=== PATIENT | male | born 1975 | race Caucasian/White ===

== ENCOUNTER 2018-12-24 12:30 | Emergency (ER) | payer OTHER ==
[2018-12-24 12:54] LABS: Urine Blood 3+ (NEG); Urine Glucose NEGATIVE (NEG); Urine Protein 2+ (NEG); Urine Specific Gravity >1.030 (1.005-1.030); Urine pH 5.5 (5.0-7.0)
[2018-12-24] MEDS ORDERED: NA CHLORIDE 0.9% 1,000 ML ONE (13:07)
[2018-12-24] MEDS ORDERED: ONDANSETRON 4 MG/2 ML VIAL ONE (13:07)
[2018-12-24 13:09] LABS: Absolute Lymphocytes (CBC) 1.8 K/uL (0.7-4.9); Absolute Monocytes 0.9 K/uL (0.1-1.3); Absolute Neutrophil 8.8 K/uL (1.8-8.0); Basophils % 0.4 % (0-1.3); Eosinophils % 0.5 % (0-4.4); Hematocrit 45.7 % (39.6-49.0); Lymphocytes % 15.4 % (15.3-44.8); MPV 7.4 fL (7.6-11.3); Monocytes % 8.1 % (3.3-12.3)
[2018-12-24 13:21] LABS: Urine Bacteria 20-50 /HPF (NONE SEEN); Urine Culture Reflex Order REFLEXED; Urine RBC 20-50 /HPF (NONE SEEN)
[2018-12-24 13:39] LABS: Albumin 4.2 g/dL (3.4-5.0); Bilirubin Direct 0.2 mg/dL (0-0.2); Bilirubin Total 0.8 mg/dL (0.2-1.0); Protein, Total 7.8 g/dL (6.4-8.2)
--- NOTE | 2018-12-24 14:37 | RAD REPORT ---
EXAM DESCRIPTION: CT - Abdomen Pelvis W Contrast - 12/24/2018 2:04 pm CLINICAL HISTORY: Abdominal pain with vomiting and diarrhea COMPARISON: none. TECHNIQUE: Computed axial tomography of the abdomen pelvis was obtained. 100 cc Isovue-300 was admin istered intravenously. Oral contrast was not requested which limits evaluation of bowel. All CT scans are performed using dose optimization technique as appropriate and may include automated exposure control or mA/KV adjustment according to patient size. FINDINGS: Fatty liver Calcified granuloma left lower lobe Spleen, pancreas, adrenal and kidneys appear unremarkable. There is no evidence of diverticulitis. The appendix is normal. The patient became nauseated during the venous phase of the exam and moved. This limits evaluation. IMPRESSION: No acute abnormality is displayed.
[2018-12-24] MEDS ORDERED: METOCLOPRAMIDE 10 MG/2mL INJ ONE (15:06)
[2018-12-24] MEDS ORDERED: DIPHENHYDRAMINE 50 MG/ML VIAL ONE (15:07)
[2018-12-24] MEDS ORDERED: CEFTRIAXONE/SWI 1gm 1 GM/10 ML SYR ONE (15:07)
[2018-12-24] MEDS ORDERED: NA CHLORIDE 0.9% 250 ML ONE (15:14)
--- NOTE | 2018-12-24 15:38 | ER ---
Nurse's Notes [facility] Name: Shashank Molina Age: 43 yrs Sex: Male : 1975 Arrival Date: 12/24/2018 Time: 12:32 Bed 7 Private MD: Diagnosis: Vomiting;Urinary tract infection, site not specified Presentation: 12/24 12:41 Presenting complaint: Patient states: N/V/D/Fever since last night, thought food sg poisioning but then had body aches and chills with urinary discomfort and frequency that started at 0900 today, reports taking tylenol at 0400 this morning. Transition of care: patient was not received from another setting of care. Onset of symptoms was December 24, 2018. Risk Assessment: Do you want to hurt yourself or someone else? Patient reports no desire to harm self or others. Initial Sepsis Screen: Does the patient meet any 2 criteria? No. Patient's initial sepsis screen is negative. Does the patient have a suspected source of infection? Yes: Dysuria/Frequency/Urgency/UTI. Care prior to arrival: None. 12:41 Method Of Arrival: Ambulatory sg 12:41 Acuity: MARISOL 3 sg Historical: - Allergies: 12:47 No Known Allergies; ss - Home Meds: 12:47 None [Active]; ss - PMHx: 12:47 Borderline Diabetes; ss - PSHx: 12:47 None; ss - Immunization history:: Adult Immunizations not up to date. - Social history:: Smoking status: Patient/guardian denies using tobacco. - Ebola Screening: : Patient negative for fever greater than or equal to 101.5 degrees Fahrenheit, and additional compatible Ebola Virus Disease symptoms Patient denies exposure to infectious person Patient denies travel to an Ebola-affected area in the 21 days before illness onset No symptoms or risks identified at this time. Screenin:05 Abuse screen: Denies threats or abuse. Nutritional screening: No deficits noted. la1 Tuberculosis screening: No symptoms or risk factors identified. Fall Risk None identified. Assessment: 13:04 Reassessment:. General: Appears in no apparent distress. Behavior is calm, cooperative. la1 Pain: Complains of pain in meatus. Neuro: Level of Consciousness is awake, alert, obeys commands, Oriented to person, place, time, situation. Cardiovascular: Capillary refill < 3 seconds Patient's skin is warm and dry. Respiratory: Airway is patent Respiratory effort is even, unlabored, Respiratory pattern is regular, symmetrical, Breath sounds are clear bilaterally. GI: No signs and/or symptoms were reported involving the gastrointestinal system. : Reports burning with urination. 14:04 Reassessment: television news reporter reported to nurses that patient had in increase in nausea during ae3 procedure but did not vomit. 15:07 Reassessment: Patient appears in no apparent distress at this time. No changes from la1 previously documented assessment. Patient and/or family updated on plan of care and expected duration. Pain level reassessed. Patient is alert, oriented x 3, equal unlabored respirations, skin warm/dry/pink. 15:44 Reassessment: Patient appears in no apparent distress at this time. No changes from la1 previously documented assessment. Patient and/or family updated on plan of care and expected duration. Pain level reassessed. Patient is alert, oriented x 3, equal unlabored respirations, skin warm/dry/pink. Vital Signs: 12:46 BP 147 / 103; Pulse 97; Resp 17; Temp 98.3; Pulse Ox 98% on R/A; Pain 4/10; ss 15:07 BP 134 / 94; Pulse 91; Resp 16; Pulse Ox 98% on R/A; la1 ED Course: 12:32 Patient arrived in ED. sg 12:43 Triage completed. sg 12:43 Manjeet Yadav PA is PHCP. [facility] 12:43 Suresh Mena MD is Attending Physician. [facility] 12:43 Arm band placed on. sg 12:51 Wiliam Hylton, SHABBIR is Primary Nurse. la1 13:05 Call light in reach. la1 13:05 No provider procedures requiring assistance completed. Inserted saline lock: 20 gauge la1 in right antecubital area, using aseptic technique. Blood collected. 13:12 Radiology exam delayed due to lab results not completed at this time. (BUN/Creatinine). mw3 13:[address] mw3 14:04 Patient moved back from radiology. ae3 14:05 CT Abd/Pelvis - W/Contrast In Process Unspecified. EDMS 15:37 Katiuska Sesay MD is Referral Physician. jmm 15:44 IV discontinued, intact, bleeding controlled, No redness/swelling at site. Pressure la1 dressing applied. Administered Medications: 13:04 Drug: NS 0.9% 1000 ml Route: IV; Rate: 1 bolus; Site: right antecubital; la1 14:48 Follow up: IV Status: Completed infusion la1 13:04 Drug: Zofran 4 mg Route: IVP; Site: right antecubital; la1 14:48 Follow up: Response: No adverse reaction la1 15:05 Drug: Rocephin - (cefTRIAXone) 1 grams Route: IVPB; Infused Over: 30 mins; Site: right la1 antecubital; 15:29 Follow up: IV Status: Completed infusion la1 15:06 Not Given (Patient Refused): Reglan 10 mg IVP once; over 1 to 2 minutes la1 15:07 Not Given (Patient Refused): diphenhydrAMINE 12.5 mg IVP once la1 Outcome: 15:37 Discharge ordered by . cydney 15:44 Discharged to home ambulatory. la1 15:44 Condition: stable 15:44 Discharge instructions given to patient, Instructed on discharge instructions, follow up and referral plans. medication usage, Demonstrated understanding of instructions, follow-up care, medications, Prescriptions given X 2. 15:45 Patient left the ED. la1 Addendum: 12/27/2018 08:59 Addendum: Culture Results: Positive urine culture. Bacteria is resistant to, has a a5 intermediate sensitivity, or is not tested against prescribed antibiotics. Report given to ROBERT for further evaluation and then to auto body painter for follow up with patient. Phone call Attempt #1 at [phone], left voicemail. Signatures: Dispatcher [employer] EDMS Regulo Salomon RN Manjeet Ornelas PA PA jmm Calderon, Audri, RN RN aa5 Sally Melara RN RN ss Attema, Lee, RN RN la1 Sheridan Carlos3 Kimmy Galarza ae3
--- NOTE | 2018-12-24 15:38 | EDPHYS ---
Physician Documentation [facility] Name: Shashank Molina Age: 43 yrs Sex: Male : 1975 Arrival Date: 12/24/2018 Time: 12:32 Bed 7 Private MD: ED Physician Suresh Mena HPI: 12/24 13:04 This 43 yrs old Male presents to ER via Ambulatory with complaints of dysura, jmm vomiting. 13:04 The patient presents with urinary symptoms, dysuria. Onset: The symptoms/episode jmm began/occurred this morning. This is a 43 year old male with no chronic medical conditions that presents to the ED with vomiting, dysuria, abdominal cramping beginning this morning at approx 0300. Patient denies diarrhea but states he has had 2 loose bowel movements. Denies similar symptoms in the past. . Historical: - Allergies: 12:47 No Known Allergies; ss - Home Meds: 12:47 None [Active]; ss - PMHx: 12:47 Borderline Diabetes; ss - PSHx: 12:47 None; ss - Immunization history:: Adult Immunizations not up to date. - Social history:: Smoking status: Patient/guardian denies using tobacco. - Ebola Screening: : Patient negative for fever greater than or equal to 101.5 degrees Fahrenheit, and additional compatible Ebola Virus Disease symptoms Patient denies exposure to infectious person Patient denies travel to an Ebola-affected area in the 21 days before illness onset No symptoms or risks identified at this time. ROS: 13:04 Constitutional: Negative for fever, chills, and weight loss, Cardiovascular: Negative jmm for chest pain, palpitations, and edema, Respiratory: Negative for shortness of breath, cough, wheezing, and pleuritic chest pain. 13:04 Abdomen/GI: Positive for nausea and vomiting. 13:04 : Positive for urinary symptoms. 13:04 All other systems are negative. Exam: 13:04 Constitutional: This is a well developed, well nourished patient who is awake, alert, jmm and in no acute distress. Head/Face: atraumatic. Eyes: EOMI, no conjunctival erythema appreciated ENT: Moist Mucus Membranes Neck: Trachea midline, Supple Chest/axilla: Normal chest wall appearance and motion. Cardiovascular: Regular rate and rhythm. No edema appreciated Respiratory: Normal respirations, no respiratory distress appreciated 13:04 Abdomen/GI: Inspection: abdomen appears normal, Bowel sounds: normal, Palpation: abdomen is soft and non-tender, in all quadrants. 13:04 Back: ROM is normal. 13:04 Musculoskeletal/extremity: ROM: intact in all extremities. 13:04 Skin: Appearance: Color: normal in color. 13:04 Neuro: Orientation: is normal, Mentation: is normal, Memory: is normal. 13:04 Psych: Behavior/mood is pleasant, cooperative. Vital Signs: 12:46 BP 147 / 103; Pulse 97; Resp 17; Temp 98.3; Pulse Ox 98% on R/A; Pain 4/10; ss 15:07 BP 134 / 94; Pulse 91; Resp 16; Pulse Ox 98% on R/A; la1 MDM: 12:45 Patient medically screened. [facility] 15:35 Data reviewed: vital signs, nurses notes. Counseling: I had a detailed discussion with cydney the patient and/or guardian regarding: the historical points, exam findings, and any diagnostic results supporting the discharge/admit diagnosis, lab results, radiology results, the need for outpatient follow up, to return to the emergency department if symptoms worsen or persist or if there are any questions or concerns that arise at home. ED course: Patient is alert and non toxic in appearance in the ED. I advised the patient to follow up with urology for further evaluation. Patient was otherwise given strict return precautions. Patient understood and agrees with the plan of care. . 12/24 12:48 Order name: Urine Dipstick--Ancillary (enter results); Complete Time: 13:34 tx 12/24 12:48 Order name: Urine Microscopic Only; Complete Time: 13:34 tx 12/24 12:49 Order name: Basic Metabolic Panel; Complete Time: 13:56 [facility] 12/24 12:49 Order name: CBC with Diff; Complete Time: 13:34 [facility] 12/24 12:49 Order name: Creatinine for Radiology; Complete Time: 13:56 [facility] 12/24 12:49 Order name: Hepatic Function; Complete Time: 13:56 [facility] 12/24 12:49 Order name: Lipase; Complete Time: 13:56 [facility] 12/24 12:49 Order name: CT Abd/Pelvis - W/Contrast; Complete Time: 14:39 [facility] 12/24 13:23 Order name: Urine Culture [facility] 12/24 12:49 Order name: IV Saline Lock; Complete Time: 13:04 [facility] 12/24 12:49 Order name: Labs collected and sent; Complete Time: 13:04 [facility] 12/24 15:08 Order name: PO challenge; Complete Time: 15:29 [facility] Administered Medications: 13:04 Drug: NS 0.9% 1000 ml Route: IV; Rate: 1 bolus; Site: right antecubital; la1 14:48 Follow up: IV Status: Completed infusion la1 13:04 Drug: Zofran 4 mg Route: IVP; Site: right antecubital; la1 14:48 Follow up: Response: No adverse reaction la1 15:05 Drug: Rocephin - (cefTRIAXone) 1 grams Route: IVPB; Infused Over: 30 mins; Site: right la1 antecubital; 15:29 Follow up: IV Status: Completed infusion la1 15:06 Not Given (Patient Refused): Reglan 10 mg IVP once; over 1 to 2 minutes la1 15:07 Not Given (Patient Refused): diphenhydrAMINE 12.5 mg IVP once la1 Disposition: 22:11 Co-signature as Attending Physician, Suresh Mena MD Available for consultation at ps1 all times . Disposition: 12/24/18 15:37 Discharged to Home. Impression: Vomiting, Urinary tract infection, site not specified. - Condition is Stable. - Discharge Instructions: Nausea and Vomiting, Adult, Urinary Tract Infection, Adult. - Prescriptions for Zofran ODT 4 mg Oral tablet,disintegrating - place 1 tablet by TRANSLINGUAL route every 4-6 hours; 20 tablet. Cephalexin 500 mg Oral Capsule - take 1 capsule by ORAL route every 12 hours for 10 days; 20 capsule. - Medication Reconciliation Form, Thank You Letter, Antibiotic Education, Prescription Opioid Use form. - Follow up: Katiuska Sesay MD; When: 2 - 3 days; Reason: Recheck today's complaints, Continuance of care, Re-evaluation by your physician. Signatures: Dispatcher [employer] [facility] Manjeet Yadav PA PA jmm Smirch, Shelby, RN RN ss Attema, Lee, RN RN la1 Singer, Phillip, MD MD ps1 Corrections: (The following items were deleted from the chart) 15:45 15:37 12/24/2018 15:37 Discharged to Home. Impression: Vomiting; Urinary tract la1 infection, site not specified. Condition is Stable. Forms are Medication Reconciliation Form, Thank You Letter, Antibiotic Education, Prescription Opioid Use. Follow up: Katiuska Sesay; When: 2 - 3 days; Reason: Recheck today's complaints, Continuance of care, Re-evaluation by your physician. cydney
== END 2018-12-24 15:45 | disposition home or self-care (01) ==
LOC: ER 12:30
DX: R11.10 Vomiting, unspecified (principal); N39.0 Urinary tract infection, site not specified; R73.03 Prediabetes
CPT/HCPCS: 36415; 74177; 80048; 80076; 81003; 81015; 83690; 85025; 87077; 87086; 87088; 87186; 96361; 96365; 96375; 99284; J0696; J2405; J2765; J7030; Q9967

== ENCOUNTER 2019-05-14 11:20 | Emergency (ER) | payer OTHER ==
[2019-05-14] MEDS ORDERED: TRAMADOL HCL 50 MG TAB ONE (12:29)
--- NOTE | 2019-05-14 12:37 | RAD REPORT ---
EXAM DESCRIPTION: RAD - Shoulder Left 2 View - 05/14/2019 11:57 am CLINICAL HISTORY: Persistent left shoulder pain COMPARISON: None. TECHNIQUE: Internal and external rotation views of the left shoulder were obtained. FINDINGS: There is no fracture or dislocation. AC joint is normal in appearance. No acute or suspici ous findings. IMPRESSION: Negative two-view left shoulder examination.
--- NOTE | 2019-05-14 12:48 | EDPHYS ---
Physician Documentation [facility] Name: Shashank Molina Age: 43 yrs Sex: Male : 1975 Arrival Date: 05/14/2019 Time: 11:24 Bed 10 Private MD: ED Physician Simona Jama HPI: 05/14 12:23 This 43 yrs old Male presents to ER via Ambulatory with complaints of kb Shoulder Pain. 12:23 The patient or guardian complains of pain, that is acute. left shoulder. Context: The kb problem was sustained at an unknown site, resulted from an unknown reason, The patient experiences decreased range of motion, when attempts to raise arm, The patient reports no obvious deformity. Onset: The symptoms/episode began/occurred 3 day(s) ago. Modifying factors: the symptoms are alleviated by nothing. The symptoms are aggravated by movement. Associated signs and symptoms: The patient has no apparent associated signs or symptoms. Severity of symptoms: At their worst the symptoms were moderate, in the emergency department the symptoms are unchanged. Treatment prior to arrival includes: no previous treatment. The patient has experienced a previous episode. The patient has not recently seen a physician. Pt reports left shoulder pain that started on Wednesday. Has had this pain before and was told it was probably a rotator cuff problem, but never got the MRI done. Historical: - Allergies: 11:41 No Known Allergies; la1 - PMHx: 11:41 Borderline Diabetes; la1 - Immunization history:: Adult Immunizations up to date. - Social history:: Smoking status: Patient/guardian denies using tobacco. - Ebola Screening: : No symptoms or risks identified at this time. ROS: 12:46 Constitutional: Negative for fever, chills, and weight loss, Cardiovascular: Negative kb for chest pain, palpitations, and edema, Respiratory: Negative for shortness of breath, cough, wheezing, and pleuritic chest pain, Abdomen/GI: Negative for abdominal pain, nausea, vomiting, diarrhea, and constipation, Skin: Negative for injury, rash, and discoloration, Neuro: Negative for headache, weakness, numbness, tingling, and seizure. 12:46 MS/extremity: Positive for decreased range of motion, pain, tenderness, of the left shoulder. Exam: 12:46 Constitutional: This is a well developed, well nourished patient who is awake, alert, kb and in no acute distress. Head/Face: Normocephalic, atraumatic. Neck: Trachea midline, no thyromegaly or masses palpated, and no cervical lymphadenopathy. Supple, full range of motion without nuchal rigidity, or vertebral point tenderness. No Meningismus. Chest/axilla: Normal chest wall appearance and motion. Nontender with no deformity. No lesions are appreciated. Cardiovascular: Regular rate and rhythm with a normal S1 and S2. No gallops, murmurs, or rubs. Normal PMI, no JVD. No pulse deficits. Respiratory: Lungs have equal breath sounds bilaterally, clear to auscultation and percussion. No rales, rhonchi or wheezes noted. No increased work of breathing, no retractions or nasal flaring. Abdomen/GI: Soft, non-tender, with normal bowel sounds. No distension or tympany. No guarding or rebound. No evidence of tenderness throughout. Skin: Warm, dry with normal turgor. Normal color with no rashes, no lesions, and no evidence of cellulitis. Neuro: Awake and alert, GCS 15, oriented to person, place, time, and situation. Cranial nerves II-XII grossly intact. Motor strength 5/5 in all extremities. Sensory grossly intact. Cerebellar exam normal. Normal gait. 12:46 Musculoskeletal/extremity: Extremities: grossly normal except: noted in the left shoulder: decreased ROM, pain, tenderness, ROM: limited active range of motion due to pain, in the left shoulder, Circulation is intact in all extremities. Sensation intact. Vital Signs: 11:41 BP 142 / 93; Pulse 66; Resp 16; Temp 97.4; Pulse Ox 100% on R/A; Weight 97.52 kg; la1 Height 6 ft. 1 in. (185.42 cm); 11:41 Body Mass Index 28.37 (97.52 kg, 185.42 cm) la1 MDM: 11:43 Patient medically screened. kb 12:47 Data reviewed: vital signs, nurses notes. Data interpreted: Pulse oximetry: on room air kb is 100 %. Interpretation: normal. Counseling: I had a detailed discussion with the patient and/or guardian regarding: the historical points, exam findings, and any diagnostic results supporting the discharge/admit diagnosis, radiology results, the need for outpatient follow up, a family practitioner, a orthopedic surgeon, to return to the emergency department if symptoms worsen or persist or if there are any questions or concerns that arise at home. 05/14 11:43 Order name: Shoulder Left (2 View) XRAY; Complete Time: 12:45 kb 05/14 12:47 Order name: Sling; Complete Time: 12:56 kb Administered Medications: 12:30 Drug: traMADol 50 mg Route: PO; la1 12:56 Follow up: Response: No adverse reaction; Pain is decreased la1 Disposition: 18:28 Co-signature as Attending Physician, Simona Jama MD. ma2 Disposition: 05/14/19 12:48 Discharged to Home. Impression: Pain in left shoulder. - Condition is Stable. - Discharge Instructions: Shoulder Pain, [id number]. - Medication Reconciliation Form, Thank You Letter, Antibiotic Education, Prescription Opioid Use form. - Follow up: Private Physician; When: 2 - 3 days; Reason: Recheck today's complaints, Continuance of care, Re-evaluation by your physician. Follow up: Emergency Department; When: As needed; Reason: Worsening of condition. Signatures: Dispatcher [employer] EDMS Brandi Bañuelos, JOLYNN-C EDI COORDINATOR-Konstantinb Wiliam Hylton RN RN la1 Simona Jama MD MD ma2 Corrections: (The following items were deleted from the chart) 12:58 12:48 05/14/2019 12:48 Discharged to Home. Impression: Pain in left shoulder. Condition la1 is Stable. Forms are Medication Reconciliation Form, Thank You Letter, Antibiotic Education, Prescription Opioid Use. Follow up: Private Physician; When: 2 - 3 days; Reason: Recheck today's complaints, Continuance of care, Re-evaluation by your physician. Follow up: Emergency Department; When: As needed; Reason: Worsening of condition. kb
--- NOTE | 2019-05-14 12:48 | ER ---
Nurse's Notes [facility] Name: Shashank Molina Age: 43 yrs Sex: Male : 1975 Arrival Date: 05/14/2019 Time: 11:24 Bed 10 Private MD: Diagnosis: Pain in left shoulder Presentation: 05/14 11:39 Presenting complaint: Patient states: I have had problems with my left shoulder for la1 several months on and off. On Wednesday it started hurting again. I am already on naproxen, flexeril, and prednisone for a bone spur in my foot and its still hurting. Transition of care: patient was not received from another setting of care. Onset of symptoms was May 14, 2019. Risk Assessment: Do you want to hurt yourself or someone else? Patient reports no desire to harm self or others. Initial Sepsis Screen: Does the patient meet any 2 criteria? No. Patient's initial sepsis screen is negative. Does the patient have a suspected source of infection? No. Patient's initial sepsis screen is negative. Care prior to arrival: None. 11:39 Method Of Arrival: Ambulatory la1 11:39 Acuity: MARISOL 4 la1 Historical: - Allergies: 11:41 No Known Allergies; la1 - PMHx: 11:41 Borderline Diabetes; la1 - Immunization history:: Adult Immunizations up to date. - Social history:: Smoking status: Patient/guardian denies using tobacco. - Ebola Screening: : No symptoms or risks identified at this time. Screenin:57 Abuse screen: Denies threats or abuse. Nutritional screening: No deficits noted. la1 Tuberculosis screening: No symptoms or risk factors identified. Fall Risk None identified. Assessment: 12:57 General: Appears in no apparent distress. Behavior is calm, cooperative. Pain: la1 Complains of pain in left shoulder. Neuro: Level of Consciousness is awake, alert, obeys commands. Cardiovascular: Capillary refill < 3 seconds Patient's skin is warm and dry. Respiratory: Airway is patent Trachea midline Respiratory effort is even, unlabored. GI: No signs and/or symptoms were reported involving the gastrointestinal system. : No signs and/or symptoms were reported regarding the genitourinary system. Musculoskeletal: Circulation, motion, and sensation intact. Capillary refill < 3 seconds, is brisk, Range of motion: intact in all extremities. Vital Signs: 11:41 BP 142 / 93; Pulse 66; Resp 16; Temp 97.4; Pulse Ox 100% on R/A; Weight 97.52 kg; la1 Height 6 ft. 1 in. (185.42 cm); 11:41 Body Mass Index 28.37 (97.52 kg, 185.42 cm) la1 ED Course: 11:24 Patient arrived in ED. mr 11:38 Arm band placed on left wrist. la1 11:41 Triage completed. la1 11:42 Brandi Bañuelos FNP-C is PHCP. kb 11:42 Simona Jama MD is Attending Physician. kb 12:13 Shoulder Left (2 View) XRAY In Process Unspecified. EDMS 12:57 Patient has correct armband on for positive identification. la1 12:57 No provider procedures requiring assistance completed. Patient did not have IV access la1 during this emergency room visit. Sling applied to left arm. Administered Medications: 12:30 Drug: traMADol 50 mg Route: PO; la1 12:56 Follow up: Response: No adverse reaction; Pain is decreased la1 Outcome: 12:48 Discharge ordered by MD. kb 12:57 Discharged to home ambulatory. la1 12:57 Condition: stable 12:57 Discharge instructions given to patient, Instructed on discharge instructions, follow up and referral plans. medication usage, Demonstrated understanding of instructions, follow-up care, medications. 12:58 Patient left the ED. la1 Signatures: Dispatcher [employer] EDMA Brandi Bañuelos FNP-C FNP-Tarik Sánchez Mansi Nicolette Ortiz, RN RN aa5 Wiliam Hylton RN RN la1 Corrections: (The following items were deleted from the chart) 16:18 11:52 Nicolette Ortiz, RN is Primary Nurse. jessica lopez
[2019-05-14 13:22] VITALS: BP 142/93; TEMP 97.4; O2SAT 100
== END 2019-05-14 12:58 | disposition home or self-care (01) ==
LOC: ER 11:20
DX: M25.512 Pain in left shoulder (principal); R73.03 Prediabetes
CPT/HCPCS: 99283